=== PATIENT | male | born 1960 | race Caucasian/White ===

== ENCOUNTER → 2021-08-10 15:07 | Outpatient (BNVA) | payer OTHER, SELFPAY | PROVIDERS: Visit Provider Podiatrist Foot & Ankle Surgery | DX: E11.8 Type 2 diabetes mellitus with unspecified complications (principal); L60.3 Nail dystrophy | CPT/HCPCS: 73630 ==

== ENCOUNTER 2021-08-29 06:00 | Outpatient (RCR) | payer OTHER, SELFPAY | END 2021-08-30 23:59 | disposition home or self-care (01) | LOC: TPT 06:00 | PROVIDERS: Referring Provider Nurse Practitioner Family; Visit Provider Nurse Practitioner Family | DX: M25.512 Pain in left shoulder (principal); S86.001S Unspecified injury of right Achilles tendon, sequela; X58.XXXS Exposure to other specified factors, sequela | CPT/HCPCS: 97110; 97163 ==

== ENCOUNTER 2021-08-31 06:00 | Outpatient (RCR) | payer OTHER, SELFPAY | END 2021-09-30 23:59 | disposition home or self-care (01) | LOC: TPT 06:00 | PROVIDERS: Visit Provider Nurse Practitioner Family | DX: M25.512 Pain in left shoulder (principal); S86.001S Unspecified injury of right Achilles tendon, sequela; X58.XXXS Exposure to other specified factors, sequela | CPT/HCPCS: 97110 ==

== ENCOUNTER → 2021-09-05 10:10 | Outpatient (BNVA) | payer OTHER, SELFPAY | PROVIDERS: Visit Provider Podiatrist Foot & Ankle Surgery | DX: E11.42 Type 2 diabetes mellitus with diabetic polyneuropathy (principal); L60.3 Nail dystrophy; M86.9 Osteomyelitis, unspecified; M20.41 Other hammer toe(s) (acquired), right foot; M20.42 Other hammer toe(s) (acquired), left foot; M21.619 Bunion of unspecified foot; M20.30 Hallux varus (acquired), unspecified foot; M86.60 Other chronic osteomyelitis, unspecified site; M19.072 Primary osteoarthritis, left ankle and foot | CPT/HCPCS: 73630 ==

== ENCOUNTER 2021-10-01 06:00 | Outpatient (RCR) | payer OTHER, SELFPAY | END 2021-10-30 23:59 | disposition home or self-care (01) | LOC: TPT 06:00 | PROVIDERS: PCP Nurse Practitioner Family; Visit Provider Nurse Practitioner Family | DX: M25.512 Pain in left shoulder (principal); S86.001S Unspecified injury of right Achilles tendon, sequela; X58.XXXS Exposure to other specified factors, sequela | CPT/HCPCS: 97110 ==

== ENCOUNTER → 2021-10-17 09:49 | Outpatient (BNVA) | payer OTHER, SELFPAY | PROVIDERS: PCP Nurse Practitioner Family; Referring Provider Nurse Practitioner Family; Visit Provider Urology | DX: N52.9 Male erectile dysfunction, unspecified (principal) | CPT/HCPCS: 81003 ==

== ENCOUNTER 2021-10-31 06:00 | Outpatient (RCR) | payer OTHER, SELFPAY | END 2021-11-21 23:59 | disposition home or self-care (01) | LOC: TPT 06:00 | PROVIDERS: PCP Nurse Practitioner Family; Visit Provider Nurse Practitioner Family | DX: M25.512 Pain in left shoulder (principal); S86.001S Unspecified injury of right Achilles tendon, sequela; X58.XXXS Exposure to other specified factors, sequela | CPT/HCPCS: 97110; 97164 ==

== ENCOUNTER → 2022-01-15 16:09 | Outpatient (BNVA) | payer OTHER, SELFPAY | PROVIDERS: PCP Nurse Practitioner Family; Visit Provider Nurse Practitioner Family | DX: N52.9 Male erectile dysfunction, unspecified (principal) | CPT/HCPCS: 81003 ==

== ENCOUNTER → 2022-01-18 13:48 | Outpatient (BNVA) | payer OTHER, SELFPAY | PROVIDERS: PCP Nurse Practitioner Family; Visit Provider Nurse Practitioner Family | DX: M25.561 Pain in right knee (principal); M25.512 Pain in left shoulder; M17.11 Unilateral primary osteoarthritis, right knee | CPT/HCPCS: 73030; 73562 ==